=== PATIENT | female | born 1980 | race Caucasian/White ===

== ENCOUNTER 2018-11-21 13:55 | Emergency (ER) | payer OTHER ==
[~2018-11-21] VITALS: Ht 160 cm; Wt 104.3 kg
[2018-11-21] MEDS ORDERED: SODIUM CHLORIDE 0.9% 1,000 ML IV ONE (15:06)
[2018-11-21] MEDS ORDERED: LORazepam 2MG/ML-1ML VIAL IV ONE (15:15)
[2018-11-21 16:04] LABS: Basophils # (auto) 0.1 uL; Basophils % (auto) 1.5 % (0.0-2.0); Eosinophils # (auto) 0 uL; Eosinophils % (auto) 0.4 % (0.0-7.0); Hematocrit 29.1 % (36.0-46.0); Hemoglobin 9.1 g/dL (12.2-16.2); Lymphocytes # (auto) 1.5 uL; Lymphocytes % (auto) 17.1 % (10.0-50.0); Mean Corpuscular Hgb Conc. 31.1 g/dL (32.0-36.0); Mean Corpuscular Volume 77.1 fL (80.0-100.0); Monocytes # (auto) 0.6 uL; Monocytes % (auto) 6.3 % (0.0-12.0); Neutrophils # (auto) 6.6 uL; Neutrophils % (auto) 74.7 % (37.0-80.0); Platelet Count (auto) 371 10^3/uL (140-450); Red Blood Cells 3.78 10^6/uL (4.0-5.20); White Blood Cell 8.8 10^3/uL (4.4-10.8)
[2018-11-21 16:06] LABS: Red Cell Distribution Width 20.3 % (11.8-14.3)
[2018-11-21 16:23] LABS: Albumin 3.7 g/dL (3.4-5.0); BUN/Creatinine Ratio 6.8; Calcium 8.1 mg/dL (8.5-10.1)
[2018-11-21 16:26] LABS: Bilirubin, Total 0.9 mg/dL (0.2-1.0); Total Protein 7.3 g/dL (6.4-8.2)
[2018-11-21 16:29] LABS: Potassium 2.9 mmol/L (3.5-5.1)
[2018-11-21] MEDS ORDERED: POTASSIUM CHL 20 Meq TABLET PO ONE (16:45)
[2018-11-21 19:30] VITALS: BP 154/77
== END 2018-11-21 19:53 | disposition home or self-care (01) ==
LOC: ER 13:55 → EDBD 13:55 → EDUNIT# 13:55 → ER 19:52
DX: F41.9 Anxiety disorder, unspecified (principal); E87.6 Hypokalemia; D64.9 Anemia, unspecified; F17.210 Nicotine dependence, cigarettes, uncomplicated; Z98.51 Tubal ligation status; Z90.49 Acquired absence of other specified parts of digestive tract
CPT/HCPCS: 36415; 80053; 85025; 94761; 96374; 99284; J2060; J7030

== ENCOUNTER 2020-08-27 15:04 | Inpatient (IN) | payer MEDICAID, OTHER ==
[~2020-08-27] VITALS: Ht 165.1 cm; Wt 116.2 kg
[2020-08-27] MEDS ORDERED: PANTOPRAZOLE 40 MG/10 ML VIAL INJ IV STA (15:13)
[2020-08-27] MEDS ORDERED: SODIUM CHLORIDE 0.9% 1,000 ML IVB ONE (15:15)
[2020-08-27] MEDS ORDERED: MORPHINE SULFATE 4 MG/ML SYR/VIAL IV ONE (15:15)
[2020-08-27] MEDS ORDERED: PROCHLORPERAZINE EDISYLATE 5 MG/ML 2ML VIAL IV ONE (15:15)
[2020-08-27 16:17] LABS: Urine Bacteria NONE SEEN /hpf (None Seen); Urine Blood 1+ /uL (Negative); Urine Hyaline Cast MOD /lpf (0 - 2); Urine Mucus FEW (None Seen); Urine Specific Gravity 1.037 (1.001-1.035); Urine WBC 3 /hpf (0 - 5)
[2020-08-27 16:18] LABS: Eosinophils # (auto) 0 10 ^3/uL (0-0.8); Hemoglobin 18.4 g/dL (12.2-16.2); White Blood Cell 20.4 10^3/uL (4.4-10.8)
[2020-08-27 16:19] LABS: Basophils # (auto) 0 10 ^3/uL (0-0.2); Basophils % (auto) 0.2 % (0.0-2.0); Hematocrit 53.7 % (36.0-46.0); Lymphocytes # (auto) 1.2 10 ^3/uL (0.4-5.4); Lymphocytes % (auto) 5.7 % (10.0-50.0); Mean Corpuscular Hemoglobin 36.9 pg (28.0-32.0); Mean Corpuscular Hgb Conc. 34.4 g/dL (32.0-36.0); Mean Corpuscular Volume 107.4 fL (80.0-100.0); Monocytes # (auto) 0.7 10 ^3/uL (0-1.3); Monocytes % (auto) 3.3 % (0.0-12.0); Neutrophils # (auto) 18.5 10 ^3/uL (1.6-8.6); Neutrophils % (auto) 90.8 % (37.0-80.0); Nucleated Red Blood Cells % 0.1 %; Red Blood Cells 4.99 10^6/uL (4.0-5.20); Red Cell Distribution Width 16.7 % (11.8-14.3)
[2020-08-27 16:27] LABS: Albumin 3.9 g/dL (3.4-5.0); Calcium 8.7 mg/dL (8.5-10.1); Potassium 4.1 mmol/L (3.5-5.1)
[2020-08-27 16:36] LABS: BUN/Creatinine Ratio 6.6; Bilirubin, Total 2.1 mg/dL (0.2-1.0); Total Protein 7.6 g/dL (6.4-8.2)
[2020-08-27 16:41] LABS: Alcohol, Urine < 3.0 mg/dL (0-10); Amphetamine Screen, Urine NEGATIVE (NEGATIVE); Barbiturate Scree,Urine NEGATIVE (NEGATIVE); Benzodiazephine Screen, Urine NEGATIVE (NEGATIVE); Cannabinoid Screen, Urine NEGATIVE (NEGATIVE); Cocaine Screen, Urine NEGATIVE (NEGATIVE); Opiate Scree,Urine NEGATIVE (NEGATIVE); Phencyclidine Screen, Urine NEGATIVE (NEGATIVE)
[2020-08-27] MEDS ORDERED: IOHEXOL 300 MG/ML 100ML BOTTLE IJ ONE (16:45)
[2020-08-27] MEDS ORDERED: LORazepam 2MG/ML-1ML VIAL IV ONE (17:00)
[2020-08-27] MEDS ORDERED: MORPHINE SULFATE INJECTION 2 MG/ML SYRG IV PRN (17:45)
[2020-08-27] MEDS ORDERED: NITROGLYCERIN 0.4 MG SL TAB SL PRN (17:45)
[2020-08-27] MEDS ORDERED: ONDANSETRON HCL 4 MG/2 ML VIAL IV PRN (17:45)
[2020-08-27] MEDS ORDERED: SODIUM CHLORIDE 0.9% 1,000 ML IV ONE (17:45)
[2020-08-27] MEDS: ENOXAPARIN SOD 40 MG/0.4 ML SYRINGE SC SCH ×2 (17:52→18:57)
[2020-08-27] MEDS: PIPERACILLIN-TAZOB 3.375GM 100 ML IV SCH ×2 (18:00→23:44)
[2020-08-27] MEDS: HYDROcodone-ACET 5/325MG TAB PO PRN (18:38)
[2020-08-27] MEDS: FOLIC ACID 1 MG, MULTIPLE VITAMIN 10 ML, MAGNESIUM SULF SDV 50% 8 MEQ, THIAMINE INJ 100... INJ SCH ×5 (19:56)
[2020-08-27] MEDS: GABAPENTIN 300 MG CAP PO SCH (21:54)
[2020-08-27 22:00] VITALS: BP 145/90
[2020-08-28] MEDS: MORPHINE SULFATE INJECTION 2 MG/ML SYRG IV PRN ×3 (01:44→21:49)
[2020-08-28 05:03] VITALS: BP 123/82
[2020-08-28] MEDS: PIPERACILLIN-TAZOB 3.375GM 100 ML IV SCH ×3 (05:52→17:48)
[2020-08-28] MEDS: GABAPENTIN 300 MG CAP PO SCH ×3 (05:53→21:49)
[2020-08-28] MEDS: HYDROcodone-ACET 5/325MG TAB PO PRN (06:40)
[2020-08-28 09:00] VITALS: BP 135/80
[2020-08-28] MEDS: ENOXAPARIN SOD 40 MG/0.4 ML SYRINGE SC SCH (09:11)
[2020-08-28] MEDS: PANTOPRAZOLE 40 MG/10 ML VIAL INJ IV SCH (09:11)
[2020-08-28] MEDS: LORazepam 2MG/ML-1ML VIAL IV PRN ×2 (09:12→21:49)
[2020-08-28] MEDS: FOLIC ACID 1 MG, MULTIPLE VITAMIN 10 ML, MAGNESIUM SULF SDV 50% 8 MEQ, THIAMINE INJ 100... INJ SCH ×5 (11:57)
[2020-08-28 13:00] VITALS: BP 120/74
[2020-08-28] MEDS: LACTATED RINGER'S 1,000 ML IV SCH ×3 (16:16→23:42)
[2020-08-28] MEDS: NICOTINE 21MG/24 HR TOPICAL PATCH TD SCH (16:52)
[2020-08-28 17:00] VITALS: BP 94/71
[2020-08-28 21:48] VITALS: BP 131/71
[2020-08-28] MEDS ORDERED: VANCOMYCIN 1GM/250ML 250 ML IV ONE (22:45)
[2020-08-29] VITALS (79 sets, daily range): BP systolic 76–145; BP diastolic 21–94
[2020-08-29] MEDS ORDERED: SODIUM BICARBONATE 8.4 % INJ 50ML VIAL IV ONE (00:45)
[2020-08-29] MEDS: PIPERACILLIN-TAZOB 3.375GM 100 ML IV SCH ×3 (01:44→13:30)
[2020-08-29 04:05] LABS: Hemoglobin 13.8 g/dL (12.2-16.2); Mean Corpuscular Hemoglobin 37.3 pg (28.0-32.0); Mean Corpuscular Hgb Conc. 34.6 g/dL (32.0-36.0); Mean Corpuscular Volume 107.8 fL (80.0-100.0); Red Blood Cells 3.71 10^6/uL (4.0-5.20); Red Cell Distribution Width 16.9 % (11.8-14.3); White Blood Cell 14.9 10^3/uL (4.4-10.8)
[2020-08-29 04:17] LABS: Basophils % (manual) 0 (0.0-2.0); Blast Cells 0; Eosinophils % (manual) 0 (0-7); Promyelocytes % 0; Reactive Lymphocytes 0
[2020-08-29] MEDS: LORazepam 2MG/ML-1ML VIAL IV PRN ×3 (04:21→17:50)
[2020-08-29 04:28] LABS: Albumin 2.5 g/dL (3.4-5.0); Calcium 6.3 mg/dL (8.5-10.1); Potassium 3.9 mmol/L (3.5-5.1)
[2020-08-29 04:37] LABS: BUN/Creatinine Ratio 6.8; Bilirubin, Total 2.7 mg/dL (0.2-1.0); Total Protein 5.4 g/dL (6.4-8.2)
[2020-08-29] MEDS ORDERED: SODIUM CHLORIDE 0.9% 1,000 ML IV ONE (04:45)
[2020-08-29] MEDS: NOREPINEPHRINE 8 MG/250ML KIT 250 ML IV SCH (04:45)
[2020-08-29 05:02] LABS: Band Neutrophils % (manual) 34; Lymphocytes % (manual) 8 (10.0-50.0); Metamyelocytes % 2; Monocytes % (manual) 7 (0-12); Myelocytes % 1
[2020-08-29] MEDS: GABAPENTIN 300 MG CAP PO SCH ×3 (06:00→21:51)
[2020-08-29] MEDS: LACTATED RINGER'S 1,000 ML IV SCH ×2 (06:00→08:50)
[2020-08-29 08:31] LABS: Urine Amorphous Crystal FEW /hpf (None Seen); Urine Bacteria NONE SEEN /hpf (None Seen); Urine Blood 3+ /uL (Negative); Urine Budding Yeast FEW /hpf (None Seen); Urine Specific Gravity 1.036 (1.001-1.035); Urine WBC 22 /hpf (0 - 5)
[2020-08-29] MEDS: PHENYLEPHRINE IV 250 ML IV SCH ×2 (09:00→17:04)
[2020-08-29] MEDS ORDERED: SODIUM BICARBONATE 50ML VIAL 75 ML in D5W/SOD CHL 0.45% 1,000 ML IV SCH (09:15)
[2020-08-29] MEDS ORDERED: CALCIUM GLUC 1,000mg/50ml-NS 50 ML IV ONE (09:30)
[2020-08-29 09:51] LABS: Creatinine, Urine 61 mg/dL (30.0-125.0); Sodium Urine 8 mmol/L (40-220)
[2020-08-29] MEDS ORDERED: LINEZOLID 600MG/300ML 300 ML IV SCH (10:00)
[2020-08-29] MEDS: FOLIC ACID 1 MG TAB PO SCH (10:00)
[2020-08-29] MEDS: THIAMINE HCL 100 MG TAB PO SCH (10:00)
[2020-08-29 10:05] LABS: Protein, Urine 382.7 mg/dL (0.0-11.9)
[2020-08-29] MEDS: ALBUMIN 25% 100 ML IV SCH ×2 (10:23→17:04)
[2020-08-29] MEDS: PANTOPRAZOLE 40 MG/10 ML VIAL INJ IV SCH (10:23)
[2020-08-29] MEDS: ENOXAPARIN SOD 40 MG/0.4 ML SYRINGE SC SCH (10:24)
[2020-08-29] MEDS: NICOTINE 21MG/24 HR TOPICAL PATCH TD SCH (10:24)
[2020-08-29 11:00] LABS: INR 1.09 (0.9-1.15)
[2020-08-29] MEDS: SODIUM BICARBONATE 50ML VIAL 75 ML in D5W/SOD CHL 0.45% 1,000 ML IV SCH ×3 (11:30→20:29)
[2020-08-29] MEDS: CALCIUM GLUC 1,000mg/50ml-NS 50 ML IV SCH ×2 (11:31→12:25)
[2020-08-29] MEDS: OCTREOTIDE ACETATE 100 MCG/ML VL SUBCUT SCH ×2 (14:16→22:00)
[2020-08-29] MEDS ORDERED: ENOXAPARIN SOD 60 MG/0.6 ML SYRINGE SC ONE (14:30)
[2020-08-29] MEDS ORDERED: LIDOCAINE 1% (LOCAL ANESTH.) PF 5ml SDV ID ONE (15:30)
[2020-08-29] MEDS: PIPERACILLIN-TAZOB 2.25GM 50 ML IV SCH ×2 (17:50→23:51)
[2020-08-29] MEDS ORDERED: BUMETANIDE 2.5mg/10ml (0.25 mg/ml) INJ IV SCH (18:00)
[2020-08-29] MEDS: SODIUM CHLOR 0.9% PF (SALINE LOCK) 10ML VIAL/SYR IV SCH (21:58)
[2020-08-29] MEDS ORDERED: ENOXAPARIN SOD 100 MG/1 ML SYRINGE SC SCH (22:00)
[2020-08-30] VITALS (84 sets, daily range): BP systolic 92–155; BP diastolic 40–77
[2020-08-30] MEDS: PHENYLEPHRINE IV 250 ML IV SCH ×3 (01:40→18:20)
[2020-08-30] MEDS: ALBUMIN 25% 100 ML IV SCH (02:05)
[2020-08-30 04:32] LABS: Basophils # (auto) 0 10 ^3/uL (0-0.2); Hematocrit 31.4 % (36.0-46.0); Hemoglobin 10.8 g/dL (12.2-16.2); Lymphocytes # (auto) 0.4 10 ^3/uL (0.4-5.4); Mean Corpuscular Hgb Conc. 34.4 g/dL (32.0-36.0); Red Cell Distribution Width 16.9 % (11.8-14.3); White Blood Cell 7.9 10^3/uL (4.4-10.8)
[2020-08-30 04:34] LABS: Eosinophils # (auto) 0.1 10 ^3/uL (0-0.8); Eosinophils % (auto) 0.9 % (0.0-7.0); Lymphocytes % (auto) 5.1 % (10.0-50.0); Mean Corpuscular Hemoglobin 37.6 pg (28.0-32.0); Mean Corpuscular Volume 109.1 fL (80.0-100.0); Monocytes # (auto) 0.4 10 ^3/uL (0-1.3); Nucleated Red Blood Cells % 0.1 %; Red Blood Cells 2.87 10^6/uL (4.0-5.20)
[2020-08-30] MEDS: NOREPINEPHRINE 8 MG/250ML KIT 250 ML IV SCH (04:45)
[2020-08-30 04:50] LABS: BUN/Creatinine Ratio 7.9; Potassium 4.1 mmol/L (3.5-5.1)
[2020-08-30] MEDS: SODIUM BICARBONATE 50ML VIAL 75 ML in D5W/SOD CHL 0.45% 1,000 ML IV SCH (05:07)
[2020-08-30] MEDS: PIPERACILLIN-TAZOB 2.25GM 50 ML IV SCH (05:11)
[2020-08-30] MEDS: OCTREOTIDE ACETATE 100 MCG/ML VL SUBCUT SCH ×3 (05:12→21:53)
[2020-08-30 05:13] LABS: Calcium 5.2 mg/dL (8.5-10.1)
[2020-08-30 08:16] LABS: Magnesium 2.3 mg/dL (1.6-2.6); Phosphorus 8.2 mg/dL (2.5-4.90)
[2020-08-30] MEDS ORDERED: SODIUM BICARBONATE IV SCH (08:45)
[2020-08-30] MEDS ORDERED: SOD CHL IV SCH (08:45)
[2020-08-30] MEDS ORDERED: D5 IV SCH (08:45)
[2020-08-30] MEDS: NICOTINE 21MG/24 HR TOPICAL PATCH TD SCH (09:30)
[2020-08-30] MEDS: ENOXAPARIN SOD 100 MG/1 ML SYRINGE SC SCH (09:30)
[2020-08-30] MEDS: SODIUM CHLOR 0.9% PF (SALINE LOCK) 10ML VIAL/SYR IV SCH ×2 (09:31→21:51)
[2020-08-30] MEDS: PANTOPRAZOLE 40 MG/10 ML VIAL INJ IV SCH (09:31)
[2020-08-30] MEDS: SODIUM BICARBONATE 50ML VIAL 50 ML in D5W/SOD CHL 0.45% 1,000 ML IV SCH ×3 (09:58→16:15)
[2020-08-30 10:18] LABS: Bilirubin, Direct 0.9 mg/dL (0-0.2)
[2020-08-30 10:32] LABS: Bilirubin, Total 1.6 mg/dL (0.2-1.0); Total Protein 5.6 g/dL (6.4-8.2)
[2020-08-30] MEDS: GABAPENTIN 300 MG CAP PO SCH ×2 (10:40→21:52)
[2020-08-30] MEDS: FOLIC ACID 1 MG TAB PO SCH (10:42)
[2020-08-30] MEDS: THIAMINE HCL 100 MG TAB PO SCH (10:43)
[2020-08-30] MEDS: DOBUTamine 1000MCG/ML 250 ML IV SCH (11:52)
[2020-08-30] MEDS ORDERED: PIPERACILLIN-TAZOB 2.25GM 50 ML IV SCH (14:00)
[2020-08-30] MEDS: CALCIUM ACETATE 667 MG CAP PO SCH ×2 (14:17→21:52)
[2020-08-30] MEDS: MORPHINE SULFATE INJECTION 2 MG/ML SYRG IV PRN (18:15)
[2020-08-31] VITALS (53 sets, daily range): BP systolic 109–157; BP diastolic 48–85
[2020-08-31] MEDS: SODIUM BICARBONATE 50ML VIAL 50 ML in D5W/SOD CHL 0.45% 1,000 ML IV SCH ×4 (01:20→17:25)
[2020-08-31] MEDS: MORPHINE SULFATE INJECTION 2 MG/ML SYRG IV PRN ×3 (02:07→18:14)
[2020-08-31] MEDS: PHENYLEPHRINE IV 250 ML IV SCH ×4 (02:40→23:35)
[2020-08-31] MEDS: DOBUTamine 1000MCG/ML 250 ML IV SCH ×2 (02:50→18:14)
[2020-08-31] MEDS: NOREPINEPHRINE 8 MG/250ML KIT 250 ML IV SCH ×2 (03:42→23:35)
[2020-08-31 04:24] LABS: Basophils # (auto) 0 10 ^3/uL (0-0.2); Eosinophils # (auto) 0.1 10 ^3/uL (0-0.8); Hematocrit 29.4 % (36.0-46.0); Hemoglobin 9.9 g/dL (12.2-16.2); Mean Corpuscular Hgb Conc. 33.7 g/dL (32.0-36.0)
[2020-08-31 04:25] LABS: Basophils % (auto) 0.2 % (0.0-2.0); Eosinophils % (auto) 1.6 % (0.0-7.0); Lymphocytes # (auto) 0.4 10 ^3/uL (0.4-5.4); Mean Corpuscular Hemoglobin 37.1 pg (28.0-32.0); Mean Corpuscular Volume 110.1 fL (80.0-100.0); Monocytes # (auto) 0.5 10 ^3/uL (0-1.3); Monocytes % (auto) 7.9 % (0.0-12.0); Neutrophils # (auto) 5.8 10 ^3/uL (1.6-8.6); Neutrophils % (auto) 84.3 % (37.0-80.0); Nucleated Red Blood Cells % 0.6 %; Potassium 3.7 mmol/L (3.5-5.1); Red Blood Cells 2.67 10^6/uL (4.0-5.20); Red Cell Distribution Width 17.2 % (11.8-14.3); White Blood Cell 6.9 10^3/uL (4.4-10.8)
[2020-08-31 04:32] LABS: Albumin 2.2 g/dL (3.4-5.0); BUN/Creatinine Ratio 6.6; Bilirubin, Total 1.3 mg/dL (0.2-1.0); Total Protein 5.4 g/dL (6.4-8.2)
[2020-08-31 04:36] LABS: Calcium 5.5 mg/dL (8.5-10.1)
[2020-08-31] MEDS: OCTREOTIDE ACETATE 100 MCG/ML VL SUBCUT SCH ×3 (06:27→21:53)
[2020-08-31] MEDS: CALCIUM ACETATE 667 MG CAP PO SCH ×3 (06:27→21:45)
[2020-08-31 08:33] LABS: Magnesium 2.2 mg/dL (1.6-2.6); Phosphorus 6.7 mg/dL (2.5-4.90)
[2020-08-31] MEDS ORDERED: SODIUM CHL 0.9% 1000 ML BAG XX ONE (09:15)
[2020-08-31] MEDS ORDERED: POTASSIUM EFFERVESENT TAB 25 MEQ PO ONE (09:30)
[2020-08-31] MEDS ORDERED: BUMETANIDE 2.5mg/10ml (0.25 mg/ml) INJ IV ONE (09:30)
[2020-08-31] MEDS: ENOXAPARIN SOD 100 MG/1 ML SYRINGE SC SCH (10:00)
[2020-08-31] MEDS: PANTOPRAZOLE 40 MG/10 ML VIAL INJ IV SCH (10:40)
[2020-08-31] MEDS: GABAPENTIN 300 MG CAP PO SCH ×2 (10:41→21:45)
[2020-08-31] MEDS: FOLIC ACID 1 MG TAB PO SCH (10:41)
[2020-08-31] MEDS: THIAMINE HCL 100 MG TAB PO SCH (10:41)
[2020-08-31] MEDS: SODIUM CHLOR 0.9% PF (SALINE LOCK) 10ML VIAL/SYR IV SCH ×2 (10:42→21:45)
[2020-08-31] MEDS: NICOTINE 21MG/24 HR TOPICAL PATCH TD SCH (10:42)
[2020-08-31] MEDS ORDERED: EPOETIN ALFA-EPBX 10,000 UNIT/1ML VIAL SC ONE (21:00)
[2020-09-01] VITALS (83 sets, daily range): BP systolic 105–161; BP diastolic 39–94
[2020-09-01] MEDS: MORPHINE SULFATE INJECTION 2 MG/ML SYRG IV PRN ×2 (00:44→05:39)
[2020-09-01] MEDS: SODIUM BICARBONATE 50ML VIAL 50 ML in D5W/SOD CHL 0.45% 1,000 ML IV SCH ×2 (01:57→17:53)
[2020-09-01 04:11] LABS: Hematocrit 28.9 % (36.0-46.0); Mean Corpuscular Hemoglobin 37.5 pg (28.0-32.0); Mean Corpuscular Hgb Conc. 34.7 g/dL (32.0-36.0); Mean Corpuscular Volume 108.1 fL (80.0-100.0); Red Blood Cells 2.67 10^6/uL (4.0-5.20); Red Cell Distribution Width 16.9 % (11.8-14.3)
[2020-09-01 04:13] LABS: Basophils % (manual) 0 (0.0-2.0); Blast Cells 0; Myelocytes % 0; Promyelocytes % 0; Reactive Lymphocytes 0
[2020-09-01 04:20] LABS: Calcium 6.2 mg/dL (8.5-10.1); INR 1.01 (0.9-1.15); Potassium 3.7 mmol/L (3.5-5.1)
[2020-09-01 04:24] LABS: BUN/Creatinine Ratio 6.9; Bilirubin, Total 1.2 mg/dL (0.2-1.0); Total Protein 5.7 g/dL (6.4-8.2)
[2020-09-01 04:37] LABS: Band Neutrophils % (manual) 20; Eosinophils % (manual) 1 (0-7); Lymphocytes % (manual) 10 (10.0-50.0); Metamyelocytes % 2; Monocytes % (manual) 8 (0-12)
[2020-09-01] MEDS: CALCIUM ACETATE 667 MG CAP PO SCH ×3 (05:37→21:51)
[2020-09-01] MEDS: OCTREOTIDE ACETATE 100 MCG/ML VL SUBCUT SCH ×3 (05:38→21:54)
[2020-09-01] MEDS: SODIUM CHLOR 0.9% PF (SALINE LOCK) 10ML VIAL/SYR IV SCH ×2 (10:24→21:54)
[2020-09-01] MEDS: PANTOPRAZOLE 40 MG/10 ML VIAL INJ IV SCH (10:24)
[2020-09-01] MEDS: ENOXAPARIN SOD 100 MG/1 ML SYRINGE SC SCH (10:24)
[2020-09-01] MEDS: THIAMINE HCL 100 MG TAB PO SCH (10:24)
[2020-09-01] MEDS: GABAPENTIN 300 MG CAP PO SCH ×2 (10:24→21:51)
[2020-09-01] MEDS: FOLIC ACID 1 MG TAB PO SCH (10:24)
[2020-09-01] MEDS: NICOTINE 21MG/24 HR TOPICAL PATCH TD SCH (10:25)
[2020-09-01] MEDS: DOBUTamine 1000MCG/ML 250 ML IV SCH (10:58)
[2020-09-01] MEDS: PHENYLEPHRINE IV 250 ML IV SCH ×2 (12:00→20:20)
[2020-09-01] MEDS ORDERED: LIDOCAINE 2% (LOCAL ANESTH.) PF 5ml SDV ONE (13:41)
[2020-09-01] MEDS ORDERED: HEPARIN 1,000 UNITS/ml 1ML VIAL IV ONE (13:45)
[2020-09-01] MEDS: LORazepam 2MG/ML-1ML VIAL IV PRN (17:53)
[2020-09-02] VITALS (38 sets, daily range): BP systolic 110–145; BP diastolic 47–88
[2020-09-02] MEDS: SODIUM BICARBONATE 50ML VIAL 50 ML in D5W/SOD CHL 0.45% 1,000 ML IV SCH ×4 (00:45→17:33)
[2020-09-02] MEDS: HYDROcodone-ACET 5/325MG TAB PO PRN (00:46)
[2020-09-02 04:08] LABS: Albumin 1.8 g/dL (3.4-5.0); Calcium 6.8 mg/dL (8.5-10.1); Potassium 3.4 mmol/L (3.5-5.1)
[2020-09-02 04:11] LABS: BUN/Creatinine Ratio 6.3; Bilirubin, Total 0.8 mg/dL (0.2-1.0); Total Protein 5.3 g/dL (6.4-8.2)
[2020-09-02] MEDS: PHENYLEPHRINE IV 250 ML IV SCH ×3 (04:40→21:20)
[2020-09-02] MEDS: NOREPINEPHRINE 8 MG/250ML KIT 250 ML IV SCH (04:45)
[2020-09-02] MEDS: DOBUTamine 1000MCG/ML 250 ML IV SCH (05:47)
[2020-09-02] MEDS: OCTREOTIDE ACETATE 100 MCG/ML VL SUBCUT SCH ×3 (05:48→21:21)
[2020-09-02] MEDS: CALCIUM ACETATE 667 MG CAP PO SCH ×3 (05:48→21:21)
[2020-09-02 10:12] LABS: Mean Corpuscular Hemoglobin 37.4 pg (28.0-32.0)
[2020-09-02] MEDS: SODIUM CHLOR 0.9% PF (SALINE LOCK) 10ML VIAL/SYR IV SCH ×2 (10:12→21:21)
[2020-09-02] MEDS: PANTOPRAZOLE 40 MG/10 ML VIAL INJ IV SCH (10:12)
[2020-09-02] MEDS: FOLIC ACID 1 MG TAB PO SCH (10:12)
[2020-09-02] MEDS: ENOXAPARIN SOD 100 MG/1 ML SYRINGE SC SCH (10:13)
[2020-09-02] MEDS: GABAPENTIN 300 MG CAP PO SCH ×2 (10:13→21:20)
[2020-09-02] MEDS: NICOTINE 21MG/24 HR TOPICAL PATCH TD SCH (10:13)
[2020-09-02] MEDS: THIAMINE HCL 100 MG TAB PO SCH (10:13)
[2020-09-02 10:15] LABS: Hematocrit 29.3 % (36.0-46.0); Hemoglobin 10.1 g/dL (12.2-16.2); Mean Corpuscular Hgb Conc. 34.6 g/dL (32.0-36.0); Mean Corpuscular Volume 108.1 fL (80.0-100.0); Red Blood Cells 2.71 10^6/uL (4.0-5.20); Red Cell Distribution Width 17.1 % (11.8-14.3); White Blood Cell 9.2 10^3/uL (4.4-10.8)
[2020-09-02 10:19] LABS: Basophils % (manual) 0 (0.0-2.0); Blast Cells 0; Myelocytes % 0; Promyelocytes % 0; Reactive Lymphocytes 0
[2020-09-02 10:29] LABS: Albumin 1.9 g/dL (3.4-5.0); Calcium 7.2 mg/dL (8.5-10.1); Potassium 3.5 mmol/L (3.5-5.1)
[2020-09-02 10:32] LABS: BUN/Creatinine Ratio 6.6; Bilirubin, Total 0.8 mg/dL (0.2-1.0); Total Protein 5.4 g/dL (6.4-8.2)
[2020-09-02 10:48] LABS: Band Neutrophils % (manual) 17; Eosinophils % (manual) 3 (0-7); Lymphocytes % (manual) 9 (10.0-50.0); Metamyelocytes % 2; Monocytes % (manual) 8 (0-12)
[2020-09-02] MEDS: LORazepam 2MG/ML-1ML VIAL IV PRN (17:29)
[2020-09-03] VITALS (8 sets, daily range): BP systolic 108–146; BP diastolic 65–94
[2020-09-03] MEDS: HYDROcodone-ACET 5/325MG TAB PO PRN (00:33)
[2020-09-03] MEDS: SODIUM BICARBONATE 50ML VIAL 50 ML in D5W/SOD CHL 0.45% 1,000 ML IV SCH ×3 (02:59→16:53)
[2020-09-03 03:58] LABS: INR 0.98 (0.9-1.15); Partial Thromboplastin Time 27.1 sec (23.0-31.2)
[2020-09-03 04:02] LABS: Albumin 1.7 g/dL (3.4-5.0); Calcium 6.9 mg/dL (8.5-10.1); Magnesium 2.1 mg/dL (1.6-2.6); Potassium 3.2 mmol/L (3.5-5.1)
[2020-09-03 04:03] LABS: Hematocrit 29.2 % (36.0-46.0); Hemoglobin 9.8 g/dL (12.2-16.2); Mean Corpuscular Hgb Conc. 33.6 g/dL (32.0-36.0); Mean Corpuscular Volume 107.9 fL (80.0-100.0); Red Blood Cells 2.71 10^6/uL (4.0-5.20)
[2020-09-03 04:05] LABS: BUN/Creatinine Ratio 6.5; Bilirubin, Total 0.7 mg/dL (0.2-1.0)
[2020-09-03 04:06] LABS: Mean Corpuscular Hemoglobin 36.3 pg (28.0-32.0); Red Cell Distribution Width 17.1 % (11.8-14.3); White Blood Cell 14.5 10^3/uL (4.4-10.8)
[2020-09-03 04:10] LABS: Basophils % (manual) 0 (0.0-2.0); Blast Cells 0; Myelocytes % 0; Promyelocytes % 0; Reactive Lymphocytes 0
[2020-09-03] MEDS: NOREPINEPHRINE 8 MG/250ML KIT 250 ML IV SCH (04:45)
[2020-09-03 05:05] LABS: Band Neutrophils % (manual) 30; Eosinophils % (manual) 3 (0-7); Lymphocytes % (manual) 8 (10.0-50.0); Metamyelocytes % 1; Monocytes % (manual) 8 (0-12)
[2020-09-03] MEDS: PHENYLEPHRINE IV 250 ML IV SCH (05:40)
[2020-09-03] MEDS: CALCIUM ACETATE 667 MG CAP PO SCH ×3 (06:13→21:39)
[2020-09-03] MEDS: OCTREOTIDE ACETATE 100 MCG/ML VL SUBCUT SCH ×3 (06:14→21:46)
[2020-09-03] MEDS: SODIUM CHLOR 0.9% PF (SALINE LOCK) 10ML VIAL/SYR IV SCH ×2 (10:00→21:39)
[2020-09-03] MEDS ORDERED: ALBUMIN 25% 100 ML IV ONE (10:45)
[2020-09-03] MEDS: THIAMINE HCL 100 MG TAB PO SCH (11:46)
[2020-09-03] MEDS: PANTOPRAZOLE 40 MG/10 ML VIAL INJ IV SCH (11:46)
[2020-09-03] MEDS: GABAPENTIN 300 MG CAP PO SCH ×2 (11:46→21:39)
[2020-09-03] MEDS: FOLIC ACID 1 MG TAB PO SCH (11:46)
[2020-09-03] MEDS: NICOTINE 21MG/24 HR TOPICAL PATCH TD SCH (11:47)
[2020-09-03] MEDS: ENOXAPARIN SOD 100 MG/1 ML SYRINGE SC SCH (11:47)
[2020-09-03] MEDS: MORPHINE SULFATE INJECTION 2 MG/ML SYRG IV PRN (18:08)
[2020-09-04] MEDS: SODIUM BICARBONATE 50ML VIAL 50 ML in D5W/SOD CHL 0.45% 1,000 ML IV SCH ×2 (01:29→08:51)
[2020-09-04] MEDS: MORPHINE SULFATE INJECTION 2 MG/ML SYRG IV PRN ×2 (05:03→21:35)
[2020-09-04 05:36] VITALS: BP 152/93
[2020-09-04] MEDS: CALCIUM ACETATE 667 MG CAP PO SCH ×3 (05:39→21:25)
[2020-09-04] MEDS: OCTREOTIDE ACETATE 100 MCG/ML VL SUBCUT SCH ×3 (05:49→21:25)
[2020-09-04 06:36] LABS: Hemoglobin 9.7 g/dL (12.2-16.2); Mean Corpuscular Hemoglobin 37.3 pg (28.0-32.0); Red Cell Distribution Width 17.3 % (11.8-14.3)
[2020-09-04 06:39] LABS: Hematocrit 28.2 % (36.0-46.0); Mean Corpuscular Hgb Conc. 34.4 g/dL (32.0-36.0); Mean Corpuscular Volume 108.2 fL (80.0-100.0); Red Blood Cells 2.61 10^6/uL (4.0-5.20); White Blood Cell 19.9 10^3/uL (4.4-10.8)
[2020-09-04 06:52] LABS: INR 0.99 (0.9-1.15); Partial Thromboplastin Time 27.4 sec (23.0-31.2)
[2020-09-04 06:58] LABS: Calcium 7.1 mg/dL (8.5-10.1)
[2020-09-04 07:01] LABS: BUN/Creatinine Ratio 5.9
[2020-09-04 07:20] LABS: Basophils % (manual) 0 (0.0-2.0); Blast Cells 0; Promyelocytes % 0; Reactive Lymphocytes 0
[2020-09-04 07:34] LABS: Potassium 2.9 mmol/L (3.5-5.1)
[2020-09-04] MEDS ORDERED: POTASSIUM CHL 20 Meq TABLET PO ONE (07:45)
[2020-09-04] MEDS: SODIUM CHLOR 0.9% PF (SALINE LOCK) 10ML VIAL/SYR IV SCH ×2 (08:51→21:25)
[2020-09-04] MEDS: PANTOPRAZOLE 40 MG/10 ML VIAL INJ IV SCH (08:51)
[2020-09-04 08:53] LABS: Band Neutrophils % (manual) 2; Eosinophils % (manual) 2 (0-7); Lymphocytes % (manual) 9 (10.0-50.0); Metamyelocytes % 1; Monocytes % (manual) 10 (0-12); Myelocytes % 1
[2020-09-04 09:00] VITALS: BP 131/80
[2020-09-04] MEDS: NICOTINE 21MG/24 HR TOPICAL PATCH TD SCH (10:00)
[2020-09-04] MEDS: GABAPENTIN 300 MG CAP PO SCH ×2 (10:00→21:25)
[2020-09-04] MEDS: FOLIC ACID 1 MG TAB PO SCH (10:00)
[2020-09-04] MEDS: THIAMINE HCL 100 MG TAB PO SCH (10:00)
[2020-09-04] MEDS: ENOXAPARIN SOD 100 MG/1 ML SYRINGE SC SCH (10:00)
[2020-09-04] MEDS ORDERED: fentaNYL CITRATE 100 MCG/2 ML VL ONE (10:23)
[2020-09-04] MEDS ORDERED: HEPARIN SODIUM (PORCINE) 5000 UNITS/ML 1ML VIAL ONE (10:23)
[2020-09-04] MEDS ORDERED: MIDAZOLAM HCL 2MG/2ML 2ml VIAL (1mg/ml) ONE (10:24)
[2020-09-04] MEDS ORDERED: LIDOCAINE 2%HCL (LOCAL ANESTH.) INJ 20ML MDV ONE ×2 (10:34→11:07)
[2020-09-04 13:00] VITALS: BP 131/84
[2020-09-04] MEDS ORDERED: BUMETANIDE 2.5mg/10ml (0.25 mg/ml) INJ IV ONE (14:00)
[2020-09-04 17:00] VITALS: BP 147/54
[2020-09-04 22:00] VITALS: BP 130/78
[2020-09-05] MEDS: LORazepam 2MG/ML-1ML VIAL IV PRN (01:53)
[2020-09-05] MEDS: HYDROcodone-ACET 5/325MG TAB PO PRN ×2 (01:54→19:57)
[2020-09-05 05:00] VITALS: BP 128/78
[2020-09-05] MEDS: OCTREOTIDE ACETATE 100 MCG/ML VL SUBCUT SCH ×3 (05:52→22:26)
[2020-09-05] MEDS: CALCIUM ACETATE 667 MG CAP PO SCH ×3 (05:52→22:26)
[2020-09-05] MEDS: MORPHINE SULFATE INJECTION 2 MG/ML SYRG IV PRN ×2 (06:09→22:33)
[2020-09-05 08:13] LABS: Hematocrit 32.5 % (36.0-46.0); Red Blood Cells 3.03 10^6/uL (4.0-5.20)
[2020-09-05 08:15] LABS: Hemoglobin 11.2 g/dL (12.2-16.2); Mean Corpuscular Hemoglobin 36.8 pg (28.0-32.0); Mean Corpuscular Hgb Conc. 34.3 g/dL (32.0-36.0); Mean Corpuscular Volume 107.3 fL (80.0-100.0); Red Cell Distribution Width 17.1 % (11.8-14.3); White Blood Cell 24.1 10^3/uL (4.4-10.8)
[2020-09-05 08:19] LABS: Basophils % (manual) 0 (0.0-2.0); Blast Cells 0; Eosinophils % (manual) 0 (0-7); Metamyelocytes % 0; Myelocytes % 0; Promyelocytes % 0; Reactive Lymphocytes 0
[2020-09-05 08:27] LABS: Albumin 1.9 g/dL (3.4-5.0); Bilirubin, Direct 0.3 mg/dL (0-0.2); Calcium 7.9 mg/dL (8.5-10.1); Magnesium 2.1 mg/dL (1.6-2.6); Potassium 3.6 mmol/L (3.5-5.1)
[2020-09-05 08:30] LABS: BUN/Creatinine Ratio 6.3; Bilirubin, Total 0.6 mg/dL (0.2-1.0); Total Protein 5.6 g/dL (6.4-8.2)
[2020-09-05 08:43] VITALS: BP 157/98
[2020-09-05] MEDS: PANTOPRAZOLE 40 MG/10 ML VIAL INJ IV SCH (08:43)
[2020-09-05] MEDS: SODIUM CHLOR 0.9% PF (SALINE LOCK) 10ML VIAL/SYR IV SCH ×2 (08:43→20:41)
[2020-09-05] MEDS: FOLIC ACID 1 MG TAB PO SCH (08:43)
[2020-09-05] MEDS: GABAPENTIN 300 MG CAP PO SCH ×2 (08:44→22:25)
[2020-09-05] MEDS: ENOXAPARIN SOD 100 MG/1 ML SYRINGE SC SCH (08:44)
[2020-09-05] MEDS: THIAMINE HCL 100 MG TAB PO SCH (08:44)
[2020-09-05] MEDS: NICOTINE 21MG/24 HR TOPICAL PATCH TD SCH (08:44)
[2020-09-05] MEDS ORDERED: SODIUM CHL 0.9% 1000 ML BAG XX ONE (08:45)
[2020-09-05 08:56] LABS: Band Neutrophils % (manual) 32; Lymphocytes % (manual) 1 (10.0-50.0); Monocytes % (manual) 3 (0-12)
[2020-09-05 12:10] LABS: Hepatitis A Ab IgM Negative
[2020-09-05 12:11] LABS: Hepatitis B Core IgM Negative; Hepatitis B Surface Antigen Negative (Negative); Hepatitis C Antibody Negative (Negative)
[2020-09-05 12:37] VITALS: BP 126/84
[2020-09-05] MEDS ORDERED: levoFLOXacin 500MG 100 ML IV ONE (13:45)
[2020-09-05 16:57] VITALS: BP 151/87
[2020-09-05 19:23] LABS: Urine Bacteria FEW /hpf (None Seen); Urine Blood 2+ /uL (Negative); Urine Budding Yeast MODERATE /hpf (None Seen); Urine Hyaline Cast FEW /lpf (0 - 2); Urine Specific Gravity 1.013 (1.001-1.035); Urine WBC 219 /hpf (0 - 5); Urine WBC Clumps PRESENT /hpf (None Seen)
[2020-09-05] MEDS ORDERED: EPOETIN ALFA-EPBX 10,000 UNIT/1ML VIAL SC ONE (21:00)
[2020-09-05 22:10] VITALS: BP 124/92
[2020-09-06] MEDS: MORPHINE SULFATE INJECTION 2 MG/ML SYRG IV PRN ×3 (03:53→20:10)
[2020-09-06 05:11] VITALS: BP 132/91
[2020-09-06 05:57] LABS: Basophils # (auto) 0.1 10 ^3/uL (0-0.2); Basophils % (auto) 0.3 % (0.0-2.0); Hematocrit 28.6 % (36.0-46.0); Hemoglobin 9.8 g/dL (12.2-16.2); Nucleated Red Blood Cells % 0.1 %; Red Blood Cells 2.65 10^6/uL (4.0-5.20); Red Cell Distribution Width 17.1 % (11.8-14.3)
[2020-09-06 06:13] LABS: Eosinophils # (auto) 0.3 10 ^3/uL (0-0.8); Eosinophils % (auto) 1.3 % (0.0-7.0); Lymphocytes # (auto) 0.8 10 ^3/uL (0.4-5.4); Lymphocytes % (auto) 3.9 % (10.0-50.0); Mean Corpuscular Hemoglobin 37.1 pg (28.0-32.0); Mean Corpuscular Hgb Conc. 34.3 g/dL (32.0-36.0); Mean Corpuscular Volume 107.9 fL (80.0-100.0); Monocytes # (auto) 1.1 10 ^3/uL (0-1.3); Monocytes % (auto) 5.6 % (0.0-12.0); Neutrophils % (auto) 88.9 % (37.0-80.0); White Blood Cell 20.3 10^3/uL (4.4-10.8)
[2020-09-06 06:21] LABS: Potassium 3.5 mmol/L (3.5-5.1)
[2020-09-06] MEDS: CALCIUM ACETATE 667 MG CAP PO SCH ×3 (06:22→21:36)
[2020-09-06] MEDS: OCTREOTIDE ACETATE 100 MCG/ML VL SUBCUT SCH ×3 (06:23→21:37)
[2020-09-06 06:26] LABS: BUN/Creatinine Ratio 6.3; Calcium 7.2 mg/dL (8.5-10.1)
[2020-09-06 08:39] VITALS: BP 150/90
[2020-09-06] MEDS: PANTOPRAZOLE 40 MG/10 ML VIAL INJ IV SCH (10:02)
[2020-09-06] MEDS: ENOXAPARIN SOD 100 MG/1 ML SYRINGE SC SCH (10:02)
[2020-09-06] MEDS: NICOTINE 21MG/24 HR TOPICAL PATCH TD SCH (10:06)
[2020-09-06] MEDS: FOLIC ACID 1 MG TAB PO SCH (10:07)
[2020-09-06] MEDS: THIAMINE HCL 100 MG TAB PO SCH (10:07)
[2020-09-06] MEDS: GABAPENTIN 300 MG CAP PO SCH ×2 (10:07→21:36)
[2020-09-06] MEDS: SODIUM CHLOR 0.9% PF (SALINE LOCK) 10ML VIAL/SYR IV SCH ×2 (10:08→21:24)
[2020-09-06 12:34] VITALS: BP 155/98
[2020-09-06] MEDS: levoFLOXacin 250MG 50 ML IV SCH (15:17)
[2020-09-06] MEDS: HYDROcodone-ACET 5/325MG TAB PO PRN ×2 (15:28→23:58)
[2020-09-06 16:35] VITALS: BP 147/88
[2020-09-06] MEDS: Nepro With Carbsteady ButterPecan 8oz Carton PO SCH (18:05)
[2020-09-06 22:00] VITALS: BP 153/98
[2020-09-07 05:00] VITALS: BP 147/88
[2020-09-07] MEDS: CALCIUM ACETATE 667 MG CAP PO SCH ×3 (06:17→21:51)
[2020-09-07] MEDS: OCTREOTIDE ACETATE 100 MCG/ML VL SUBCUT SCH ×3 (06:18→21:51)
[2020-09-07] MEDS: MORPHINE SULFATE INJECTION 2 MG/ML SYRG IV PRN ×3 (06:29→19:43)
[2020-09-07 09:00] VITALS: BP 138/88
[2020-09-07] MEDS: Nepro With Carbsteady ButterPecan 8oz Carton PO SCH ×2 (09:19→18:02)
[2020-09-07] MEDS: NICOTINE 21MG/24 HR TOPICAL PATCH TD SCH (10:09)
[2020-09-07] MEDS: GABAPENTIN 300 MG CAP PO SCH ×2 (10:09→21:50)
[2020-09-07] MEDS: FOLIC ACID 1 MG TAB PO SCH (10:09)
[2020-09-07] MEDS: ENOXAPARIN SOD 100 MG/1 ML SYRINGE SC SCH (10:10)
[2020-09-07] MEDS: Pro-Stat SF 30ml Vanilla PO SCH (10:10)
[2020-09-07] MEDS: HYDROcodone-ACET 5/325MG TAB PO PRN (10:10)
[2020-09-07] MEDS: THIAMINE HCL 100 MG TAB PO SCH (10:11)
[2020-09-07] MEDS: SODIUM CHLOR 0.9% PF (SALINE LOCK) 10ML VIAL/SYR IV SCH ×2 (10:11→21:50)
[2020-09-07] MEDS: PANTOPRAZOLE 40 MG/10 ML VIAL INJ IV SCH (10:11)
[2020-09-07 13:00] VITALS: BP 130/75
[2020-09-07 16:48] VITALS: BP 133/68
[2020-09-07 22:00] VITALS: BP 134/81
[2020-09-08 05:00] VITALS: BP 130/84
[2020-09-08] MEDS: OCTREOTIDE ACETATE 100 MCG/ML VL SUBCUT SCH ×3 (05:59→20:57)
[2020-09-08] MEDS: CALCIUM ACETATE 667 MG CAP PO SCH ×3 (06:14→20:56)
[2020-09-08 09:00] VITALS: BP 130/85
[2020-09-08] MEDS: SODIUM CHLOR 0.9% PF (SALINE LOCK) 10ML VIAL/SYR IV SCH ×2 (09:14→20:55)
[2020-09-08] MEDS: PANTOPRAZOLE 40 MG/10 ML VIAL INJ IV SCH (09:14)
[2020-09-08] MEDS: FOLIC ACID 1 MG TAB PO SCH (09:14)
[2020-09-08] MEDS: THIAMINE HCL 100 MG TAB PO SCH (09:15)
[2020-09-08] MEDS: GABAPENTIN 300 MG CAP PO SCH ×2 (09:15→20:55)
[2020-09-08] MEDS: Pro-Stat SF 30ml Vanilla PO SCH (09:16)
[2020-09-08] MEDS: ENOXAPARIN SOD 100 MG/1 ML SYRINGE SC SCH (09:16)
[2020-09-08] MEDS: NICOTINE 21MG/24 HR TOPICAL PATCH TD SCH (09:17)
[2020-09-08] MEDS: Nepro With Carbsteady ButterPecan 8oz Carton PO SCH ×2 (09:34→18:30)
[2020-09-08 11:56] LABS: BUN/Creatinine Ratio 8.7; Calcium 7.6 mg/dL (8.5-10.1); Potassium 3.8 mmol/L (3.5-5.1)
[2020-09-08 12:32] VITALS: BP 135/87
[2020-09-08] MEDS: levoFLOXacin 250MG 50 ML IV SCH (13:53)
[2020-09-08] MEDS: MORPHINE SULFATE INJECTION 2 MG/ML SYRG IV PRN ×2 (13:53→19:44)
[2020-09-08 17:00] VITALS: BP 125/87
[2020-09-08] MEDS: HYDROcodone-ACET 5/325MG TAB PO PRN (20:57)
[2020-09-08 21:33] VITALS: BP 143/87
[2020-09-09] MEDS: MORPHINE SULFATE INJECTION 2 MG/ML SYRG IV PRN ×2 (04:41→09:30)
[2020-09-09 05:00] VITALS: BP 128/74
[2020-09-09] MEDS: CALCIUM ACETATE 667 MG CAP PO SCH ×2 (05:42→14:02)
[2020-09-09] MEDS: OCTREOTIDE ACETATE 100 MCG/ML VL SUBCUT SCH ×2 (05:43→14:02)
[2020-09-09] MEDS: Nepro With Carbsteady ButterPecan 8oz Carton PO SCH (08:20)
[2020-09-09 09:00] VITALS: BP 112/79
[2020-09-09] MEDS: SODIUM CHLOR 0.9% PF (SALINE LOCK) 10ML VIAL/SYR IV SCH (09:20)
[2020-09-09] MEDS: PANTOPRAZOLE 40 MG/10 ML VIAL INJ IV SCH (09:20)
[2020-09-09] MEDS: THIAMINE HCL 100 MG TAB PO SCH (09:21)
[2020-09-09] MEDS: FOLIC ACID 1 MG TAB PO SCH (09:21)
[2020-09-09] MEDS: GABAPENTIN 300 MG CAP PO SCH (09:21)
[2020-09-09] MEDS: NICOTINE 21MG/24 HR TOPICAL PATCH TD SCH (09:22)
[2020-09-09] MEDS: ENOXAPARIN SOD 100 MG/1 ML SYRINGE SC SCH (09:22)
[2020-09-09] MEDS: Pro-Stat SF 30ml Vanilla PO SCH (09:22)
[2020-09-09 12:52] VITALS: BP 130/86
[2020-09-09] MEDS: HYDROcodone-ACET 5/325MG TAB PO PRN (13:30)
[2020-09-09 16:52] VITALS: BP 124/82
[2020-09-16] MEDS ORDERED: SPIR25TA PO (16:40)
[2020-09-16] MEDS ORDERED: SULF400T11 PO (16:40)
== END 2020-09-09 18:24 | disposition home health service (06) | DRG 720 ==
LOC: EDBD 15:04 → ER 15:04 → TELE 17:33 → TELE-WESTW 20:40 → ICU WEST 08-29 01:17 → TELE-CENTR 09-03 08:34
PROVIDERS: ADMIT Internal Medicine; ATTEND Internal Medicine
PROC: 02HV33Z Insertion of Infusion Device into Superior Vena Cava, Percutaneous Approach (ICD-10-PCS; principal; 2020-08-29)
PROC: B548ZZA Ultrasonography of Superior Vena Cava, Guidance (ICD-10-PCS; 2020-08-29)
PROC: 5A1D70Z Performance of Urinary Filtration, Intermittent, Less than 6 Hours Per Day (ICD-10-PCS; 2020-09-01)
PROC: 5A1D70Z Performance of Urinary Filtration, Intermittent, Less than 6 Hours Per Day (ICD-10-PCS; 2020-09-03)
PROC: 0JH63XZ Insertion of Tunneled Vascular Access Device into Chest Subcutaneous Tissue and Fascia, Percutaneous Approach (ICD-10-PCS; 2020-09-04)
PROC: 02H633Z Insertion of Infusion Device into Right Atrium, Percutaneous Approach (ICD-10-PCS; 2020-09-04)
PROC: B5181ZA Fluoroscopy of Superior Vena Cava using Low Osmolar Contrast, Guidance (ICD-10-PCS; 2020-09-04)
PROC: B548ZZA Ultrasonography of Superior Vena Cava, Guidance (ICD-10-PCS; 2020-09-04)
PROC: 5A1D70Z Performance of Urinary Filtration, Intermittent, Less than 6 Hours Per Day (ICD-10-PCS; 2020-09-04)
PROC: 5A1D70Z Performance of Urinary Filtration, Intermittent, Less than 6 Hours Per Day (ICD-10-PCS; 2020-09-05)
DX: A41.9 Sepsis, unspecified organism (principal); K76.7 Hepatorenal syndrome; J96.01 Acute respiratory failure with hypoxia; N17.0 Acute kidney failure with tubular necrosis; I81 Portal vein thrombosis; E66.01 Morbid (severe) obesity due to excess calories; M62.82 Rhabdomyolysis; K85.20 Alcohol induced acute pancreatitis without necrosis or infection; K72.90 Hepatic failure, unspecified without coma; Z60.2 Problems related to living alone; N39.0 Urinary tract infection, site not specified; R93.89 Abnormal findings on diagnostic imaging of other specified body structures; E83.51 Hypocalcemia; E88.09 Other disorders of plasma-protein metabolism, not elsewhere classified; K70.31 Alcoholic cirrhosis of liver with ascites; F10.229 Alcohol dependence with intoxication, unspecified; F10.239 Alcohol dependence with withdrawal, unspecified; R65.21 Severe sepsis with septic shock; E83.39 Other disorders of phosphorus metabolism; E87.1 Hypo-osmolality and hyponatremia; Y90.9 Presence of alcohol in blood, level not specified; J98.11 Atelectasis; Z99.2 Dependence on renal dialysis; Z90.49 Acquired absence of other specified parts of digestive tract; Z98.51 Tubal ligation status; Z88.8 Allergy status to other drugs, medicaments and biological substances; Z83.3 Family history of diabetes mellitus; Z82.49 Family history of ischemic heart disease and other diseases of the circulatory system; Z80.9 Family history of malignant neoplasm, unspecified; Z68.33 Body mass index [BMI] 33.0-33.9, adult
CPT/HCPCS: 36415; 36561; 36569; 36600; 70450; 71045; 71260; 73020; 74176; 74177; 76000; 76775; 76937; 77001; 80048; 80053; 80074; 80076; 80307; 81001; 81025; 82040; 82140; 82550; 82570; 82805; 82962; 83036; 83690; 83735; 83880; 84100; 84156; 84300; 85007; 85025; 85027; 85610; 85730; 86850; 86900; 86901; 87040; 87081; 87086; 87088; 87340; 87426; 87493; 90935; 93005; 93306; 96361; 96365; 96372; 96375; 96376; 97110; 97116; 97530; 99152; C9113; G0378; J1956; J2001; J2250; J2405; J2543; P9047